=== PATIENT | male | born 1960 | race Caucasian/White ===

== ENCOUNTER → 2017-01-16 | Outpatient (CLI) | payer OTHER ==
--- NOTE | 2017-01-16 23:30 | MR ---
EXAMINATION TYPE: MR shoulder RT wo con DATE OF EXAM: 01/16/2017 COMPARISON: NONE HISTORY: Shoulder Pain, Limited ROM TECHNIQUE: Multiplanar, multisequence imaging of the right shoulder is performed without contrast. FINDINGS: There is extensive hypertrophic spurring at the AC joint. There is a large defect in the supraspinatu s tendon with increased signal at the greater tuberosity of the humerus. There is no retraction. Ther e is subacromial joint space narrowing. The glenoid ant appear intact. Subscapularis tendon is inta ct. Biceps tendon is intact. I see no fracture. IMPRESSION: Large rotator cuff tear at the greater tuberosity of the humerus without retraction. Small shoulder joint effusion. 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 Subacromial joint space narrowing and impingeme nt.
== END ==
LOC: RADMRIMAIN 19:21
PROVIDERS: ATTEND Orthopaedic Surgery
DX: M75.101 Unspecified rotator cuff tear or rupture of right shoulder, not specified as traumatic (principal); M19.011 Primary osteoarthritis, right shoulder

== ENCOUNTER → 2017-03-17 | Outpatient (CLI) | payer OTHER ==
[2017-03-17 10:01] LABS: EKG EKG PERFORMED
[2017-03-17 10:20] LABS: Anion Gap 10 mmol/L; Carbon Dioxide 24 mmol/L (22-30); Chloride 106 mmol/L (98-107); Potassium 4.4 mmol/L (3.5-5.1); Sodium 140 mmol/L (137-145)
[2017-03-17 10:32] LABS: Basophils % (A) 1 %; CH 32.8; CHCM 34.7; Eosinophils # (A) 0.1 k/uL (0-0.7); Eosinophils % (A) 2 %; HCT 51.8 % (39.0-53.0); HDW 2.45; HGB 16.4 gm/dL (13.0-17.5); Luc # (Auto) 0.13; Luc % (Auto) 2; Lymphocytes # (A) 1.5 k/uL (1.0-4.8); Lymphocytes % (A) 25 %; MCH 30.2 pg (25.0-35.0); MCHC 31.7 g/dL (31.0-37.0); MCV 95.2 fL (80.0-100.0); Mean Platelet Volume 7.8; Monocytes # (A) 0.5 k/uL (0-1.0); Monocytes % (A) 8 %; Neutrophils # (A) 3.7 k/uL (1.3-7.7); Neutrophils % (A) 63 %; RBC 5.44 m/uL (4.30-5.90); RDW 13.7 % (11.5-15.5); WBC 5.9 k/uL (3.8-10.6)
== END | disposition home or self-care (01) ==
LOC: LABPAT 09:42
PROVIDERS: ATTEND Orthopaedic Surgery
DX: Z01.810 Encounter for preprocedural cardiovascular examination (principal); Z01.812 Encounter for preprocedural laboratory examination; M75.41 Impingement syndrome of right shoulder
CPT/HCPCS: 36415; 80051; 85025; 93005

== ENCOUNTER → 2017-05-27 | Outpatient (CLI) | payer OTHER ==
[2017-05-27 16:48] LABS: Basophils % (A) 1 %; Eosinophils # (A) 0.2 k/uL (0-0.7); Eosinophils % (A) 3 %; HGB 18.5 gm/dL (13.0-17.5); Lymphocytes # (A) 1.5 k/uL (1.0-4.8); Lymphocytes % (A) 23 %; MCH 29.9 pg (25.0-35.0); MCHC 33.1 g/dL (31.0-37.0); MCV 90.2 fL (80.0-100.0); Monocytes # (A) 0.4 k/uL (0-1.0); Monocytes % (A) 7 %; Neutrophils # (A) 4.3 k/uL (1.3-7.7); Neutrophils % (A) 65 %; Platelet Count 197 k/uL (150-450); RDW 11.9 % (11.5-15.5); WBC 6.6 k/uL (3.8-10.6)
[2017-05-27 16:49] LABS: HCT 55.9 % (39.0-53.0)
[2017-05-27 16:52] LABS: ALT 42 U/L (21-72); AST 21 U/L (17-59); Albumin 4.4 g/dL (3.5-5.0); Alkaline Phosphatase 80 U/L (38-126); Anion Gap 9 mmol/L; Blood Urea Nitrogen 14 mg/dL (9-20); Calcium 9.7 mg/dL (8.4-10.2); Carbon Dioxide 30 mmol/L (22-30); Chloride 105 mmol/L (98-107); Cholesterol 248 mg/dL (<200); Glucose 98 mg/dL (74-99); HDL Cholesterol 44 mg/dL (40-60); LDL Cholesterol,Calculated 159 mg/dL (0-99); Potassium 4.8 mmol/L (3.5-5.1); Sodium 144 mmol/L (137-145); Total Bilirubin 0.6 mg/dL (0.2-1.3); Total Protein 7.3 g/dL (6.3-8.2); Triglycerides 225 mg/dL (<150)
[2017-05-28 01:23] LABS: Hepatitis A Antibody IgM Non-Reactive (Non-Reactive); Hepatitis B Core IgM Non-Reactive (Non-Reactive)
== END | disposition home or self-care (01) ==
LOC: LABWHC1 16:23
PROVIDERS: ATTEND Family Medicine
DX: Z00.00 Encounter for general adult medical examination without abnormal findings (principal); Z12.5 Encounter for screening for malignant neoplasm of prostate
CPT/HCPCS: 36415; 80053; 80061; 80074; 84153; 84443; 85025

== ENCOUNTER → 2018-05-13 | Outpatient (CLI) | payer OTHER ==
[2018-05-13 14:05] LABS: Basophils % (A) 1 %; Eosinophils # (A) 0.1 k/uL (0-0.7); Eosinophils % (A) 2 %; HCT 52.3 % (39.0-53.0); HGB 17.5 gm/dL (13.0-17.5); Lymphocytes # (A) 1.3 k/uL (1.0-4.8); Lymphocytes % (A) 19 %; MCH 30.2 pg (25.0-35.0); MCHC 33.5 g/dL (31.0-37.0); MCV 90.2 fL (80.0-100.0); Mean Platelet Volume 7.2; Monocytes # (A) 0.5 k/uL (0-1.0); Monocytes % (A) 7 %; Neutrophils # (A) 4.6 k/uL (1.3-7.7); Neutrophils % (A) 70 %; Platelet Count 172 k/uL (150-450); RDW 12.4 % (11.5-15.5); WBC 6.6 k/uL (3.8-10.6)
[2018-05-13 14:21] LABS: ALT 27 U/L (21-72); AST 23 U/L (17-59); Albumin 4.2 g/dL (3.5-5.0); Alkaline Phosphatase 69 U/L (38-126); Anion Gap 7 mmol/L; Blood Urea Nitrogen 17 mg/dL (9-20); Calcium 9.1 mg/dL (8.4-10.2); Carbon Dioxide 24 mmol/L (22-30); Chloride 110 mmol/L (98-107); Cholesterol 212 mg/dL (<200); Creatine Kinase 97 U/L (55-170); Glucose 97 mg/dL (74-99); HDL Cholesterol 42 mg/dL (40-60); LDL Cholesterol,Calculated 149 mg/dL (0-99); Potassium 4.7 mmol/L (3.5-5.1); Sodium 141 mmol/L (137-145); Total Bilirubin 0.6 mg/dL (0.2-1.3); Total Protein 7.2 g/dL (6.3-8.2); Triglycerides 104 mg/dL (<150)
[2018-05-13 21:31] LABS: Hemoglobin A1C 5.3 % (4.0-6.0)
--- NOTE | 2018-05-14 08:52 | US ---
EXAMINATION TYPE: US kidneys/renal and bladder DATE OF EXAM: 05/13/2018 COMPARISON: NONE CLINICAL HISTORY: R31.9 HEMATURIA. Back pain x couple weeks. EXAM MEASUREMENTS: Right Kidney: 9.3 x 4.6 x 4.8 cm Left Kidney: 10.7 x 5.5 x 5.3 cm Right Kidney: no hydronephrosis or masses seen Left Kidney: no hydronephrosis or masses seen Bladder: wnl Bilateral Jets seen: yes There is no evidence for hydronephrosis at this point in time. There appears to be a punctate 2 mm no nobstructing right renal calculus. Left kidney demonstrates a 4 mm shadowing nonobstructing calculus. No masses are identified. The urinary bladder is anechoic. Bilateral ureteral jets are seen. IMPRESSION: Bilateral sub-4 mm nonobstructing renal calculi. No hydronephrosis of either kidney.
== END ==
LOC: RADUSWWP 13:06
PROVIDERS: ATTEND Family Medicine
DX: N20.0 Calculus of kidney (principal); E78.5 Hyperlipidemia, unspecified; Z00.00 Encounter for general adult medical examination without abnormal findings; Z12.5 Encounter for screening for malignant neoplasm of prostate
CPT/HCPCS: 76770; 80053; 80061; 82550; 83036; 84153; 84439; 84443; 85025

== ENCOUNTER → 2018-06-01 | Outpatient (CLI) | payer OTHER ==
--- NOTE | 2018-06-02 08:06 | US ---
EXAMINATION TYPE: US thyroid st tissue head/neck DATE OF EXAM: 06/01/2018 COMPARISON: NONE CLINICAL HISTORY: R79.89 Raised TSH Level. Elevated TSH level GLAND SIZE: Right Lobe: 4.9 x 2.0 x 2.0 cm Overall Parenchyma: homogenous Left Lobe: 4.1 x 1.8 x 1.9 cm Overall Parenchyma: homogeneous Isthmus Thickness: 0.4 cm NODULES RIGHT: # of nodules measured on right: 0 LEFT: # of nodules measured on left: 0 ISTHMUS: # of nodules measured in the isthmus: 0 Bilateral neck scanned, no evidence of lymphadenopathy. IMPRESSION: Prominent size of the homogeneous thyroid gland. No discrete thyroid nodule.
== END | disposition home or self-care (01) ==
LOC: RADUSWWP 16:43
PROVIDERS: ATTEND Family Medicine
DX: R79.89 Other specified abnormal findings of blood chemistry (principal)
CPT/HCPCS: 76536

== ENCOUNTER → 2019-04-25 | Outpatient (CLI) | payer OTHER ==
[2019-04-25 17:32] LABS: Basophils % (A) 0 %; Eosinophils # (A) 0.2 k/uL (0-0.7); Eosinophils % (A) 3 %; HCT 49.7 % (39.0-53.0); HGB 17.1 gm/dL (13.0-17.5); Lymphocytes # (A) 1.6 k/uL (1.0-4.8); Lymphocytes % (A) 23 %; MCH 31.1 pg (25.0-35.0); MCHC 34.4 g/dL (31.0-37.0); MCV 90.3 fL (80.0-100.0); Monocytes # (A) 0.4 k/uL (0-1.0); Monocytes % (A) 6 %; Neutrophils # (A) 4.6 k/uL (1.3-7.7); Neutrophils % (A) 66 %; Platelet Count 196 k/uL (150-450); RDW 11.9 % (11.5-15.5)
[2019-04-26 01:26] LABS: African American GFR (CKD) 109.5 (60.0-200.0); Albumin 4.3 g/dL (3.80-4.90); Albumin/Globulin Ratio 2.15 (1.60-3.17); Anion Gap 6.2 mmol/L (4.00-12.00); BUN/Creat Ratio 14.44 Ratio (12.00-20.00); Calcium 8.9 mg/dL (8.7-10.3); Carbon Dioxide 26.8 mmol/L (21.6-31.8); Chol/HDL Ratio 4.67; LDL Cholesterol,Calculated 145.4 mg/dL (0.0-131.0); Non-African American GFR(CKD) 94.5 (60.0-200.0); Potassium 4.6 mmol/L (3.5-5.5); Total Bilirubin 0.6 mg/dL (0.3-1.2); Total Protein 6.3 g/dL (6.2-8.2); VLDL Calculation 30.6 mg/dL (5.00-40.00)
[2019-04-26 01:37] LABS: Hemoglobin A1C 5.4 % (4.0-6.0)
== END | disposition home or self-care (01) ==
LOC: LABWHC1 17:07
PROVIDERS: ATTEND Family Medicine
DX: Z00.00 Encounter for general adult medical examination without abnormal findings (principal); Z12.5 Encounter for screening for malignant neoplasm of prostate
CPT/HCPCS: 36415; 80053; 80061; 83036; 84153; 84443; 85025

== ENCOUNTER → 2019-06-24 | Outpatient (CLI) | payer OTHER ==
--- NOTE | 2019-06-24 20:21 | US ---
EXAMINATION TYPE: US venous doppler duplex LE LT DATE OF EXAM: 06/24/2019 7:39 PM COMPARISON: NONE CLINICAL HISTORY: M79.605 PAIN IN LT LEG. Intermittent edema left leg for 2 weeks to 1 month. Pain le ft knee SIDE PERFORMED: left TECHNIQUE: The lower extremity deep venous system is examined utilizing real time linear array sonog madelaine with graded compression, doppler sonography and color-flow sonography. VESSELS IMAGED: External Iliac Vein (EIV) Common Femoral Vein Deep Femoral Vein Greater Saphenous Vein * Femoral Vein Popliteal Vein Small Saphenous Vein * Proximal Calf Veins (* superficial vessels) Left Leg: No evidence of DVT. complex anechoic area left popliteal fossa = 4.5 x 2.5 x 2.7cm, Patricia' s cyst IMPRESSION: No evidence of deep venous thrombosis. Popliteal cyst is noted.
== END | disposition home or self-care (01) ==
LOC: RADUSMAIN 18:39
PROVIDERS: ATTEND Family Medicine
DX: M71.22 Synovial cyst of popliteal space [Baker], left knee (principal)

== ENCOUNTER → 2019-08-01 | Outpatient (CLI) | payer OTHER ==
--- NOTE | 2019-08-01 17:53 | MR ---
EXAMINATION TYPE: MR knee LT wo con DATE OF EXAM: 08/01/2019 COMPARISON: NONE HISTORY: left knee swelling per patient. Pain per order. TECHNIQUE: Multiplanar, multisequence images of the knee is performed without IV contrast. FINDINGS: MEDIAL MENISCUS: Anterior horn is intact without tear. Posterior horn is truncated with some abnormal signal, full-thickness tear suspected as patient denies prior surgery. LATERAL MENISCUS: Anterior and posterior horns are intact without tear. CRUCIATE LIGAMENTS: The anterior and posterior cruciate ligaments are intact . The anterior cruciate ligament is thickened with increased signal. COLLATERAL LIGAMENTS: The medial collateral ligament and lateral collateral ligament complex are inta ct and unremarkable. EXTENSOR MECHANISM: Visualized quadriceps and patellar tendons are intact. EFFUSION: Moderate size suprapatellar joint effusion. POPLITEAL CYST: Small to moderate size popliteal/skinner cyst measuring 5.5 cm long axis sagittal image 23. Some ill-defined fluid inferiorly suggests leak. TRICOMPARTMENT SPACES: Mild to moderate tricompartment joint space loss with mild spurring. CARTILAGE: Some chondromalacia patellar thinning of articular cartilage lining the superior aspect of the posterior patellar pole. Some moderate cartilaginous loss and fissuring medial tibial femoral co mpartment. BONE MARROW SIGNAL: Areas of diminished T1 and slight increased T2 signal medial tibial femoral deneen rtment greatest over the medial tibial plateau presumed product of reactive degenerative change. OTHER: No additional significant abnormality is appreciated. IMPRESSION: 1. Fairly moderate tricompartment degenerative changes greatest medial tibiofemoral compartment as de tailed above. Presumed product of underlying osteoarthritis. 2. Probable full-thickness degenerative tear posterior horn of medial meniscus. 3. Fairly moderate-sized suprapatellar joint effusion. 4. Small to moderate-sized leaking popliteal cyst. 5. Myxoid degeneration ACL.
== END | disposition home or self-care (01) ==
LOC: RADMRIMAIN 17:01
PROVIDERS: ATTEND Orthopaedic Surgery
DX: M17.12 Unilateral primary osteoarthritis, left knee (principal); M23.8X2 Other internal derangements of left knee; M66.0 Rupture of popliteal cyst

== ENCOUNTER → 2020-09-20 | Outpatient (CLI) | payer OTHER ==
[2020-09-20 16:23] LABS: Potassium 4.2 mmol/L (3.5-5.1)
[2020-09-20 16:30] LABS: Basophils % (A) 0 %; Eosinophils # (A) 0.2 k/uL (0-0.7); Eosinophils % (A) 3 %; HCT 47.6 % (39.0-53.0); HGB 16.2 gm/dL (13.0-17.5); Lymphocytes # (A) 1.7 k/uL (1.0-4.8); Lymphocytes % (A) 23 %; MCH 30.6 pg (25.0-35.0); MCV 90.1 fL (80.0-100.0); Mean Platelet Volume 7.5; Monocytes # (A) 0.4 k/uL (0-1.0); Monocytes % (A) 6 %; Neutrophils # (A) 4.8 k/uL (1.3-7.7); Neutrophils % (A) 66 %; Platelet Count 182 k/uL (150-450); RBC 5.29 m/uL (4.30-5.90); RDW 12.6 % (11.5-15.5); WBC 7.3 k/uL (3.8-10.6)
== END | disposition home or self-care (01) ==
LOC: LABPAT 15:48
PROVIDERS: ATTEND Orthopaedic Surgery
DX: Z01.818 Encounter for other preprocedural examination (principal); M23.92 Unspecified internal derangement of left knee; R94.31 Abnormal electrocardiogram [ECG] [EKG]
CPT/HCPCS: 36415; 80051; 85025; 93005

== ENCOUNTER 2020-09-26 12:04 | Day surgery (SDC) | payer OTHER ==
[2020-09-21 15:48] VITALS: BMI 31.5
--- NOTE | 2020-09-25 15:14 | HP ---
HISTORY AND PHYSICAL DATE OF SURGERY: 09/26/2020 Rivas Sorensen is a 59-year-old gentleman seen with progressive left knee pain. We discussed options for treatment. He elected to proceed with arthroscopy. Consent was obtained. PAST MEDICAL HISTORY: Gastroesophageal reflux disease. PAST SURGICAL HISTORY: Carpal tunnel surgery, knee arthroscopy, shoulder arthroscopy. DAILY MEDICATIONS: 1. Celebrex. 2. Prilosec. 3. Cyclobenzaprine. ALLERGIES: None. SOCIAL HISTORY: He smokes 1 pack of cigarettes daily. PHYSICAL EVALUATION OF THE LEFT KNEE: His range of motion is -1/2 to 130. Tenderness medial joint line. Positive medial Gopal's. Ligaments stable. Hip rotation without pain. Distal neurovascular exam intact. Radiographs of his left knee revealed moderate medial compartment osteoarthritis. A previous left knee MRI revealed medial meniscal tear, Patricia's cyst and moderate effusion. IMPRESSION: 1. Internal derangement of left knee with medial meniscal tear. 2. Gastroesophageal reflux disease. 3. Tobacco use. PLAN: Left knee arthroscopy with partial medial meniscectomy, partial synovectomy and debridement. MMODL / IJN: [id number] /
[~2020-09-26 12:04] MED LIST: DEXAMETHASONE SOD PHOSPHATE 4 MG/ML 1 ML VIAL IV ONE; HYDROmorphone 0.5 MG/0.5 ML SYRINGE IVP PRN; LACTATED RINGERS 1,000 ML IV SCH; LIDOCAINE 1% (10MG/ML) FOR IV START INTRADERMA PRN; ONDANSETRON 4 MG/2 ML VIAL IVP ONE; SCOPOLAMINE 1.5MG/72HR PATCH TRANSDERM ONE
[2020-09-26 12:38] VITALS: RESP 16
[2020-09-26] MEDS ORDERED: fentaNYL (PF) 50 MCG/ML 2 ML AMP ONE (12:46)
[2020-09-26] MEDS ORDERED: MIDAZOLAM 2 MG/2 ML VIAL ONE (12:46)
[2020-09-26] MEDS ORDERED: PROPOFOL 10 MG/ML 20 ML VIAL IV ONE (12:46)
[2020-09-26] MEDS ORDERED: HYDROmorphone (PF) 1 MG/ML ONE (12:46)
[2020-09-26] MEDS ORDERED: LIDOCAINE 1% INJ 10MG/ML (20 ML MDV) ONE (12:46)
[2020-09-26] MEDS ORDERED: BUPIVACAINE (PF) 0.25% 30 ML VIAL SQ ONE ×2 (13:06→13:15)
--- NOTE | 2020-09-26 13:29 | P.OP ---
Date of Procedure: 09/26/20 Preoperative Diagnosis: Internal derangement left knee Postoperative Diagnosis: 1. Tear medial meniscus left knee 2. Reactive synovitis medial, lateral and suprapatellar compartments left knee Procedure(s) Performed: 1. Arthroscopic partial medial meniscectomy left knee 2. Arthroscopic partial synovectomy medial, lateral and suprapatellar compartments left knee Anesthesia: DONTEA, local Surgeon: Jero Schmidt Estimated Blood Loss (ml): 7 Pathology: none sent Condition: stable Disposition: PACU Indications for Procedure: 59-year-old gentleman seen with progressive left knee pain. After having treatment options discussed, he elected to proceed with arthroscopy. Operative Findings: See description of procedure Description of Procedure: Patient was taken to the operative suite. Patient underwent a general anest hetic by the department of anesthesia. Patient was given preoperative antibiotics. The left lower extremity was placed in a well-padded arthroscopic leg wynn. The left leg was prepped and draped in the normal sterile orthopedic fashion. A lateral parapatellar and suprapatellar incision was made. Trochars were inserted. Arthroscopy was initiated. Suprapatellar pouch revealed diffuse thick reactive synovitis. The patellofemoral joint appeared to articulate congruently. There with grade 1 chondromalacia with no osteochondral tears present. The scope was guided into the medial gutter. No loose bodies or plica were identified. The scope was then guided into the medial compartment. A medial parapatellar incision was made. Trocar inserted followed by probe. There was a complex tear posterior horn medial meniscus. There were grade 2/3 chondromalacia changes of the medial femoral condyle. There was an area of grade 4 chondromalacia along the medial tibial plateau with exposed bone. There was thick reactive synovitis anteriorly. I performed a partial medial meniscectomy getting down to stable meniscal tissue. I performed a partial synovectomy decompressing the reactive synovitis. The residual meniscus was stable. There was good decompression of the synovitis. Scope and probe were then guided into the intercondylar notch. Cruciates were identified, probed and found to be stable. The scope and probe were then guided into lateral compartment. The lateral meniscus was stable. There was grade 1 chondral malacia changes with no tears. There was thick reactive synovitis anteriorly. I introduced a motorized shaver and performed a partial synovectomy. The shaver was removed. There was good decompression of the synovitis. The scope was in guided back into the suprapatellar compartment. I introduced a motorized shaver into the suprapatellar compartment. I debrided some piecemeal fragments of meniscus I encountered. I performed a partial synovectomy. Shaver was removed. There was good decompression of the synovitis. Instruments were now removed from the joint. The joint was infiltrated with .25% Marcaine. Steri-Strips were applied to the portal sites. Sterile dressings were applied. The patient was placed into a BISHOP hose. No tourniquet was utilized. The patient was awakened, transferred to a bed and taken to recovery stable satisfactory condition.
[2020-09-26 13:32] VITALS: TEMP 97.3
[2020-09-26] MEDS ORDERED: HYDROcodone/APAP 10-325MG 1 EACH TAB ONE (14:26)
[2020-09-26] MEDS ORDERED: HYDROcodone/APAP 10-325MG 1 EACH TAB PO ONE (14:28)
[2020-09-26 14:41] VITALS: BP 150/96; PULSE 77
== END 2020-09-26 15:07 | disposition home or self-care (01) ==
LOC: OR 12:04
PROVIDERS: ATTEND Orthopaedic Surgery
DX: M23.222 Derangement of posterior horn of medial meniscus due to old tear or injury, left knee (principal); M65.862 Other synovitis and tenosynovitis, left lower leg; K21.9 Gastro-esophageal reflux disease without esophagitis; F17.210 Nicotine dependence, cigarettes, uncomplicated; M19.90 Unspecified osteoarthritis, unspecified site; Z79.891 Long term (current) use of opiate analgesic; Z98.890 Other specified postprocedural states; Z79.899 Other long term (current) drug therapy
CPT/HCPCS: 29881; 29876; J2250; J1100; J0690; J2405; J2001; J3010; J1170; J2704

== ENCOUNTER → 2021-02-05 | Outpatient (CLI) | payer OTHER ==
--- NOTE | 2021-02-05 14:07 | ECHOS ---
STRESS ECHOCARDIOGRAM DATE OF STUDY: 02/05/2021 INDICATIONS: Chest pain. BASELINE HEART RATE: 71 BASELINE BLOOD PRESSURE: 120/87 MAXIMUM HEART RATE: 148 MAXIMUM BLOOD PRESSURE: 217/77 85% MPHR: 137 100% MPHR: 161 METS: 9.7 MAXIMUM STAGE REACHED: 3 TOTAL EXERCISE TIME: 8:00 CLINICAL INFORMATION: STRESS DATA: Pretesting physical examination showed a heart rate of 71, pressure 120/87 mmHg. Baseline EKG showed sinus mechanism. The patient exercised on the treadmill according to Zev protocol for a total of 8 minutes and achieved 9.7 METS. Max heart rate was 148, which is about 92% of maximum predicted heart rate. Maximum blood pressure was 217/77 mmHg. Clinically the patient did not have any symptoms. The EKG did not show any significant ST or T-wave abnormalities concerning for ischemia. Echocardiogram images from parasternal long axis view, parasternal short axis view, apical 4-chamber and apical 2-chamber views were obtained as the baseline images, at the peak of the heart rate as well as on recovery. The echocardiogram images showed good augmentation in the left ventricular systolic function without any evidence of wall motion abnormalities concerning for ischemia. CONCLUSION: 1. Excellent exercise tolerance. 2. Normal EKG in response to exercise. 3. Normal echocardiogram in response to exercise. 4. Essentially normal stress echocardiogram for the patient. MMODL / IJN: [id number] /
== END | disposition home or self-care (01) ==
LOC: RADNMMAIN 10:05
PROVIDERS: ATTEND Family Medicine
DX: R07.9 Chest pain, unspecified (principal)
CPT/HCPCS: 93351

== ENCOUNTER → 2021-02-05 | Outpatient (CLI) | payer OTHER ==
[2021-02-07 07:34] LABS: C-ANCA <1:20 Titer (<1:20)
== END | disposition home or self-care (01) ==
LOC: LABWHC1 09:14
PROVIDERS: ATTEND Otolaryngology Facial Plastic Surgery
DX: M35.00 Sjogren syndrome, unspecified (principal)
CPT/HCPCS: 36415; 85652; 86038; 86235; 86255

== ENCOUNTER → 2022-04-15 | Outpatient (CLI) | payer OTHER ==
--- NOTE | 2022-04-15 19:23 | US ---
EXAMINATION TYPE: US groin RT DATE OF EXAM: 04/15/2022 COMPARISON: NONE CLINICAL HISTORY: 61-year-old male K40.90 R Inguinal hernia. Technique: Multiple sonographic images of the right inguinal region without and with Valsalva. FINDINGS: Landmarks were identified including the external iliac vessels and takeoff of the inferior epigastric vessels. Multiple images were obtained in the region of the inguinal rings. Road Boss notes: No ul trasound evidence of hernia on today's ultrasound. IMPRESSION: Unable to identify a right inguinal hernia by ultrasound.
--- NOTE | 2022-04-15 19:28 | US ---
EXAMINATION TYPE: US scrotum with doppler. TECHNIQUE: Grayscale and color Doppler Duplex imaging performed of the scrotum. DATE OF EXAM: 04/15/2022 COMPARISON: NONE CLINICAL HISTORY: 61-year-old male N45.1 Epididymitis. FINDINGS: EXAM MEASUREMENTS: TESTICLES: Right Testicle: 4.8 x 2.3 x 3.1 cm for a volume of 18.0 mL. Left Testicle: 4.7 x 2.4 x 2.3 cm, slightly asymmetrically smaller with a volume of 13.5 mL. Both testicles show relatively homogeneous appearance without focal lesion or hyperemia. EPIDIDYMIS HEAD: Right Epididymis: 0.7 cm Left Epididymis: 1.0 cm Doppler performed to assess for testicular vascularity; good bilateral color flow and waveforms are s een. There is no evidence of testicular torsion. Presence of hydroceles: Small to moderate in size measuring 3.1 x 0.9 x 2.8cm Presence of varicoceles: no There seems to be some asymmetric left hemiscrotal skin thickening. Somewhat heterogeneous thickening to the body of the epididymis on both sides. IMPRESSION: 1. Somewhat heterogeneous thickening in the region of the body of the epididymis on both sides. Unabl e to entirely exclude the possibility of epididymitis. Consider short interval follow-up. 2. There is a small to moderate hydrocele on the right and slight left-sided hemiscrotal skin thicken ing. 3. Slight asymmetrically smaller left testicle probably a chronic finding in this patient. Otherwise, there is overall normal homogeneous appearance of both testicles.
[2022-04-15 23:57] LABS: Basophils # (A) 0.03 X 10*3/uL (0.00-0.10); Basophils % (A) 0.5 %; Eosinophils % (A) 1.8 %; HCT 49.1 % (39.6-50.0); HGB 16.9 g/dL (13.0-17.0); Immature Grans, Automated 0.4 %; Lymphocytes # (A) 1.25 X 10*3/uL (0.90-5.00); MCH 30.8 pg (27.0-32.0); MCHC 34.4 g/dL (32.0-37.0); MCV 89.6 fL (80.0-97.0); Mean Platelet Volume 10.1 fL (9.5-12.2); Monocytes # (A) 0.55 X 10*3/uL (0.20-1.00); Monocytes % (A) 9.7 %; NRBC Per 100 WBC 0 /100 WBCS (0.0-0.0); Neutrophils # (A) 3.74 X 10*3/uL (1.80-7.70); Neutrophils % (A) 65.6 %; Platelet Count 179 X 10*3/uL (140-440); RBC 5.48 X 10*6/uL (4.40-5.60); RDW 11.9 % (11.5-14.5); WBC 5.69 X 10*3/uL (4.50-10.00)
[2022-04-16 00:32] LABS: ALT 17 U/L (10-49); AST 15 U/L (14-35); African American GFR (CKD) 110.5 (60.0-200.0); Albumin 4.4 g/dL (3.8-4.9); Albumin/Globulin Ratio 2.05 (1.60-3.17); Alkaline Phosphatase 94 U/L (41-126); BUN/Creat Ratio 21.62 Ratio (12.00-20.00); Blood Urea Nitrogen 18.1 mg/dL (9.0-27.0); Calcium 8.9 mg/dL (8.7-10.3); Carbon Dioxide 25.9 mmol/L (20.0-27.5); Chloride 104 mmol/L (96-109); Chol/HDL Ratio 4.29 Ratio; Globulin 2.2 g/dL (1.6-3.3); Glucose 95 mg/dL (70-110); LDL Cholesterol,Calculated 137.2 mg/dL (0.0-131.0); Non-African American GFR(CKD) 95.3 (60.0-200.0); Sodium 139 mmol/L (135-145); Total Protein 6.6 g/dL (6.2-8.2); VLDL Calculation 13.86 mg/dL (5.00-40.00)
== END | disposition home or self-care (01) ==
LOC: RADUSWWP 14:04
PROVIDERS: ATTEND Family Medicine
DX: Z12.5 Encounter for screening for malignant neoplasm of prostate (principal); K40.90 Unilateral inguinal hernia, without obstruction or gangrene, not specified as recurrent; M45.1 Ankylosing spondylitis of occipito-atlanto-axial region
CPT/HCPCS: 76870; 80053; 80061; 83036; 84153; 84443; 85025; 93975

== ENCOUNTER → 2022-05-02 | Outpatient (CLI) | payer OTHER ==
--- NOTE | 2022-05-05 08:42 | MR ---
EXAMINATION TYPE: MR shoulder LT wo con DATE OF EXAM: 05/02/2022 COMPARISON: Outside left shoulder x-ray April 09, 2022 HISTORY: Left shoulder pain, decreased ROM. TECHNIQUE: Multiplanar, multisequence imaging of the left shoulder is performed without contrast. FINDINGS: Rotator Cuff: Increased signal distal supraspinatus tendon with areas of partial tearing near the art icular surface. Infraspinatus tendon intact. Rotator cuff muscle bulk preserved. Acromioclavicular Joint: Moderate narrowing and spurring. Moderate superior capsular hypertrophy. Und erlying fat plane is raised. Glenohumeral Joint: Small to moderate-sized joint effusion. Small spur inferior medial humeral head. Labrum: Increased signal superior labrum consistent with degenerative tearing. Biceps Tendon: The long head of biceps is not identify an end normal location within bicipital groove . Marked focal fluid signal along the bicipital groove. Intra-articular portion to the biceps anchor is not well seen suspected torn and dislocated. Bone marrow signal: Heterogeneous increased T2 signal involving the superolateral humeral head suspec t subchondral cystic change. Overall heterogeneity. Other: No additional significant abnormality is appreciated. IMPRESSION: 1. Tear and dislocation long head of biceps tendon. 2. Partial tearing and tendinopathy of the distal supraspinatus tendon. 3. Degenerative changes as detailed above. Superior labral tear is present.
== END | disposition home or self-care (01) ==
LOC: RADMRIMAIN 20:15
PROVIDERS: ATTEND Orthopaedic Surgery
DX: M75.112 Incomplete rotator cuff tear or rupture of left shoulder, not specified as traumatic (principal); S43.005A Unspecified dislocation of left shoulder joint, initial encounter; M19.012 Primary osteoarthritis, left shoulder

== ENCOUNTER → 2022-11-17 | Outpatient (CLI) | payer OTHER ==
--- NOTE | 2022-11-18 20:39 | MR ---
EXAMINATION TYPE: MR shoulder LT wo con DATE OF EXAM: 11/17/2022 COMPARISON: Prior MRI left shoulder May 02, 2022. Most recent x-ray October 30, 2022. HISTORY: Lt shoulder pain with difficulty raising arm overhead for 2 weeks, history of surgery 4 ashley hs ago. TECHNIQUE: Multiplanar, multisequence imaging of the left shoulder is performed without contrast. FINDINGS: Rotator Cuff: Increased signal distal supraspinatus tendon with more prominent areas of tearing near the articular surface and increasing tearing along the bursal surface noted. Infraspinatus tendon rem ains intact with some increased signal involving anterior fibers distally. Portion of Subscapularis t endon remains intact. Some increased signal and surrounding fluid noted. Some atrophy involving the p osterior fibers of the subscapularis muscle otherwise Rotator cuff muscle bulk preserved. Acromioclavicular Joint: Moderate narrowing and spurring. Moderate superior capsular hypertrophy. Und erlying fat plane is effaced on coronal and sagittal images suspicious for underlying impingement. Glenohumeral Joint: Small to moderate-sized joint effusion redemonstrated. Small spur inferior medial humeral head again seen. Narrowing greatest inferiorly redemonstrated. Labrum: Increased signal superior labrum consistent with degenerative tearing is again seen. Biceps Tendon: The long head of biceps is not identify an end normal location within bicipital groove . Marked focal fluid signal along the bicipital groove. Intra-articular portion to the biceps anchor is not well seen suspected torn and dislocated. Bone marrow signal: New artifact from surgical screw anterolateral aspect of the humeral head is pres ent. Other: No additional significant abnormality is appreciated. IMPRESSION: 1. Persistent suspected Tear and dislocation long head of biceps tendon despite artifact from interva l surgery. Normal intact tendon is not identified. 2. Increasing tearing and tendinosis of the distal supraspinatus tendon. There is new less prominent tendinosis of the distal infraspinatus tendon. 3. Fairly moderate Degenerative changes as detailed above. Correlate for underlying impingement. Supe rior labral tear is redemonstrated.
== END | disposition home or self-care (01) ==
LOC: RADMRIMAIN 18:49
PROVIDERS: ATTEND Orthopaedic Surgery
DX: M67.814 Other specified disorders of tendon, left shoulder (principal); M75.112 Incomplete rotator cuff tear or rupture of left shoulder, not specified as traumatic; M19.012 Primary osteoarthritis, left shoulder

== ENCOUNTER → 2022-12-01 | Outpatient (CLI) | payer OTHER ==
[2022-12-01 16:46] LABS: Basophils # (A) 0.03 X 10*3/uL (0.00-0.10); Basophils % (A) 0.5 %; Eosinophils # (A) 0.14 X 10*3/uL (0.04-0.35); Eosinophils % (A) 2.4 %; HCT 50.2 % (39.6-50.0); HGB 17.2 d/dL (12.0-15.0); Lymphocytes # (A) 1.55 X 10*3/uL (0.90-5.00); Lymphocytes % (A) 26.8 %; MCH 30.9 pg (27.0-32.0); MCHC 34.3 d/dL (32.0-37.0); MCV 90.1 FL (80.0-97.0); Monocytes # (A) 0.62 X 10*3/uL (0.20-1.00); Monocytes % (A) 10.7 %; NRBC Per 100 WBC 0 X 10*3/uL (0.00-0.01); Neutrophils # (A) 3.43 X 10*3/uL (1.80-7.70); Neutrophils % (A) 59.3 %; Platelet Count 160 X 10*3/uL (140-440); RBC 5.57 X 10*6/uL (4.40-5.60); WBC 5.79 X 10*3/uL (4.50-10.00)
[2022-12-01 17:26] LABS: Anion Gap 10.3 mmol/L (4.00-12.00); Carbon Dioxide 25.7 mmol/L (21.6-31.8); Potassium 4.6 mmol/L (3.5-5.5)
== END | disposition home or self-care (01) ==
LOC: LABWHC1 09:50
PROVIDERS: ATTEND Orthopaedic Surgery
DX: Z01.812 Encounter for preprocedural laboratory examination (principal); M75.42 Impingement syndrome of left shoulder
CPT/HCPCS: 36415; 80051; 85025

== ENCOUNTER 2022-12-25 07:19 | Day surgery (SDC) | payer OTHER ==
[2022-12-19 10:43] VITALS: BMI 32.5
--- NOTE | 2022-12-24 14:37 | HP ---
HISTORY AND PHYSICAL DATE OF SCHEDULED SURGERY: 12/25/2022 HISTORY OF PRESENT ILLNESS: Willie Sorensen is a 62-year-old patient seen with left shoulder pain. We discussed options, had post left shoulder arthroscopy. Consent obtained. PAST MEDICAL HISTORY: Gastroesophageal reflux disease. PAST SURGICAL HISTORY: Carpal tunnel surgery, knee arthroscopy, shoulder arthroscopy. DAILY MEDICATIONS: 1. Celebrex. 2. Neavitt. 3. Prilosec. 4. Trazodone. 5. Furosemide. ALLERGIES: None. SOCIAL HISTORY: He smokes 1 pack of cigarettes daily. PHYSICAL EVALUATION OF THE LEFT SHOULDER: Range of the left shoulder, flexion 70 degrees, abduction 70 degrees, external rotation is 30 degrees. Tenderness along the anterolateral acromion rotator cuff insertion. Impingement positive 80, drop-arm sign positive. Distal neurovascular exam intact. RADIOGRAPHS: Left shoulder radiographs revealed a stable flat acromion. MRI left shoulder revealed rotator cuff tear, labral tear, and acromioclavicular joint osteoarthritis. IMPRESSION: 1. Left shoulder rotator cuff tear and labral tear. 2. Left shoulder acromioclavicular joint osteoarthritis. 3. Gastroesophageal reflux disease. PLAN: Left shoulder arthroscopy with rotator cuff repair, debridement, labral tear, Froy procedure. MMODL / IJN: [id number] /
[2022-12-25] MEDS ORDERED: ONDANSETRON 4 MG/2 ML VIAL IVP ONE (07:46)
[2022-12-25] MEDS ORDERED: DEXAMETHASONE SOD PHOSPHATE 4 MG/ML 1 ML VIAL IV ONE (07:46)
[2022-12-25] MEDS ORDERED: HYDROmorphone 0.5 MG/0.5 ML SYRINGE IVP PRN (07:46)
[2022-12-25] MEDS ORDERED: LACTATED RINGERS 1,000 ML IV SCH (07:46)
[2022-12-25] MEDS ORDERED: MIDAZOLAM 2 MG/2 ML VIAL IVP ONE (08:33)
[2022-12-25] MEDS ORDERED: ROCURONIUM 10 MG/ML (5 ML VIAL) IV ONE (09:28)
[2022-12-25] MEDS ORDERED: ROPIVACAINE 5 MG/ML 30 ML VIAL ONE (09:28)
[2022-12-25] MEDS ORDERED: PROPOFOL 10 MG/ML 20 ML VIAL IV ONE (09:28)
[2022-12-25] MEDS ORDERED: fentaNYL (PF) 50 MCG/ML 2 ML AMP ONE (09:28)
[2022-12-25] MEDS ORDERED: ALBUTEROL HFA INHALER INHALATION ONE (09:28)
[2022-12-25] MEDS ORDERED: LIDOCAINE 2% INJ 20 MG/ML (2 ML VIAL) ONE (09:28)
[2022-12-25] MEDS ORDERED: SUCCINYLCHOLINE CHLORIDE 200 MG/10 ML VIAL IV ONE (09:28)
[2022-12-25] MEDS ORDERED: DEXAMETHASONE SOD PHOSPHATE 4 MG/ML 1 ML VIAL ONE (09:28)
[2022-12-25] MEDS ORDERED: PHENYLEPHRINE 10 MG/ML VIAL ONE (09:28)
--- NOTE | 2022-12-25 10:47 | P.OP ---
Date of Procedure: 12/25/22 Preoperative Diagnosis: Left shoulder impingement Postoperative Diagnosis: 1. Left shoulder rotator cuff tear 2. Left shoulder acromioclavicular joint osteoarthritis Procedure(s) Performed: 1. Left shoulder arthroscopic rotator cuff repair 2. Left shoulder arthroscopic Froy procedure Implants: 1Arthrex 5.5 swivel lock anchor Anesthesia: GETA, regional (Interscalene block) Surgeon: Jero Schmidt Estimated Blood Loss (ml): 10 Pathology: none sent Condition: stable Disposition: PACU Indications for Procedure: 62-year-old patient seen with left shoulder pain. We discussed options for treatment. He elected to proceed with arthroscopy. Operative Findings: See description of procedure Description of Procedure: Patient underwent an interscalene block by department of anesthesia. The p atient was then taken to the operative suite. The patient underwent a general anesthetic by the department of anesthesia. The patient was placed into a lateral position and secured. There was appropriate padding of the bony prominence. Left shoulder was then prepped and draped in normal sterile orthopedic fashion. We placed the extremity in 10 pounds of longitudinal traction. A posterior incision was now made for a posterior working portal site. The trocar and cannula were inserted into the glenohumeral joint. Arthroscopy was initiated. Spinal needle was now inserted anteriorly, to ascertain the anterior working portal site. An incision was now made in that area, a trocar was inserted followed by a probe. The biceps tendon was absent. The labrum appeared stable. There were grade 1 chondromalacia changes involving the glenohumeral joint without significant tear. At this point instruments removed from glenohumeral joint. Utilizing the posterior working portal site, the trocar and cannula were inserted into the subacromial space. Arthroscopy initiated. I made an incision 2 fingerbreadths lateral to the acromion. I introduced my trocar followed by my ArthroCare ablator. I now began ablating thick subacromial bursal tissue, which exposed the undersurface of the anterior acromion. There was evidence of a previous subacromial decompression adequate subacromial space noted. The acromioclavicular joint revealed some significant osteoarthritic changes. I now introduced a motorized bur through the anterior portal site and performed a Froy procedure. I noted adequate Froy procedure at this point was stable residual acromioclavicular joint. I now turned my attention to the rotator cuff tendon. There was a recurrent tear along the distal supraspinatus tendon with evidence of previous repair. I now debrided those margins all residual suture getting down to stable tendon tissue. The recurrent tear measuring about 1.5 cm and was freely mobile over the footprint. I abraded the footprint with a motorized bur. I now passed 3 everted mattress sutures through good bites of rotator cuff tendon. I now punched to holes in the footprint area for insertion of an anchor. All 6 limbs of suture were passed through the eyelet of an Arthrex 5.5 swivel lock anchor. I placed the eyelet in that the pre-punch hole. I held in position while an medical record assistant tensioned all 6 limbs of suture and deployed the anchor with good fixation noted. All residual suture limbs were now clipped. We had good compression of the tendon along the entire footprint. Instruments now removed from the portal sites. All portal sites were approximated with nylon suture. Sterile dressings were applied followed by a shoulder sling. The patient was awakened, transferred to a bed, and taken to recovery in stable condition.
[2022-12-25 10:52] VITALS: TEMP 97
[2022-12-25 11:02] VITALS: RESP 16
[2022-12-25] MEDS ORDERED: LABETALOL SYRINGE 5 MG/ML (4 ML SYR) IVP ONE (11:17)
--- NOTE | 2022-12-25 11:46 | P.ANPRN ---
Procedure Note - Anesthesia - Nerve Block Performed Left Interscalene Single Time Out Performed: Yes Date of Procedure: 12/25/22 Location of Patient: PreOp Indication: Acute Post-Operative Pain, Dx/Pain Location (Left shoulder), Requested by Surgeon Specifically requested for management of pain by DrCarol: Jero Schmidt Sedation Type: Sedate with meaningful contact maintained Preparation: Sterile Prep Position: Supine Catheter: None Needle Types: Pajunk Ultrasound used to visualize needle placement: Yes Ultrasound used to observe medication spread: Yes Injectate: 0.5% Ropivacaine (see comment for volume) (30 mL +10 mL of normal saline) Blood Aspirated: No Pain Paresthesia on Injection Noted: No Resistance on Injection: Normal Image Stored and Saved: Yes Events: Uneventful and Well Tolerated
[2022-12-25 11:51] VITALS: BP 130/85; PULSE 71
== END 2022-12-25 12:11 | disposition home or self-care (01) ==
LOC: OR 07:19
PROVIDERS: ATTEND Orthopaedic Surgery
DX: S43.402A Unspecified sprain of left shoulder joint, initial encounter (principal); M75.42 Impingement syndrome of left shoulder; M75.102 Unspecified rotator cuff tear or rupture of left shoulder, not specified as traumatic; M94.212 Chondromalacia, left shoulder; K21.9 Gastro-esophageal reflux disease without esophagitis; F17.210 Nicotine dependence, cigarettes, uncomplicated; Z98.890 Other specified postprocedural states; Z79.899 Other long term (current) drug therapy; X58.XXXA Exposure to other specified factors, initial encounter
CPT/HCPCS: 64415; 29827; 29824; C1894; C1713; J2250; J0330; J1100; J0690; J2405; J3010; J2795; J2704; J2001; J2371; J1920

== ENCOUNTER 2023-04-28 08:52 | Emergency (ER) | payer OTHER ==
[2023-04-28] MEDS ORDERED: HYDROmorphone 1 MG/ML 1 ML SYRINGE IVP STA ×2 (09:06→10:36)
[2023-04-28 09:41] LABS: Basophils % (A) 0 %; Eosinophils # (A) 0.1 k/uL (0-0.7); Eosinophils % (A) 2 %; HCT 50.1 % (39.0-53.0); HGB 17.7 gm/dL (13.0-17.5); Lymphocytes # (A) 1.1 k/uL (1.0-4.8); Lymphocytes % (A) 15 %; MCH 31.4 pg (25.0-35.0); MCHC 35.3 g/dL (31.0-37.0); MCV 88.9 fL (80.0-100.0); Mean Platelet Volume 7.9; Monocytes # (A) 0.5 k/uL (0-1.0); Monocytes % (A) 8 %; Neutrophils # (A) 5.3 k/uL (1.3-7.7); Neutrophils % (A) 73 %; Platelet Count 156 k/uL (150-450); RBC 5.64 m/uL (4.30-5.90); RDW 12.5 % (11.5-15.5); WBC 7.2 k/uL (3.8-10.6)
[2023-04-28 09:55] LABS: ALT 22 U/L (4-49); African American GFR (CKD) >90 (>60 ml/min/1.73 sqM); Albumin 4.2 g/dL (3.5-5.0); Anion Gap 8 mmol/L; Blood Urea Nitrogen 15 mg/dL (9-20); Calcium 8.7 mg/dL (8.4-10.2); Carbon Dioxide 23 mmol/L (22-30); Chloride 101 mmol/L (98-107); Glucose 104 mg/dL (74-99); Non-African American GFR(CKD) >90 (>60 ml/min/1.73 sqM); Sodium 132 mmol/L (137-145); Total Bilirubin 0.9 mg/dL (0.2-1.3); Total Protein 7.2 g/dL (6.3-8.2)
[2023-04-28 10:01] LABS: AST 28 U/L (17-59); Alkaline Phosphatase 90 U/L (38-126); Potassium 4.6 mmol/L (3.5-5.1)
--- NOTE | 2023-04-28 10:23 | ED ---
Fall HPI - General Chief Complaint: Fall Stated Complaint: Fall, lower back pain Time Seen by Provider: 04/28/23 09:00 Source: patient, family, RN notes reviewed Mode of arrival: ambulatory Limitations: no limitations - History of Present Illness Initial Comments: 62-year-old male presents emergency Department chief complaint of fall, left flank pain, abdominal pain. Patient states she slipped on some ice falling on the deck steps. Patient states he had no head injury no loss conscious denies any upper back pain, chest pain he states his pain from his left flank region into his abdomen states his abdomen feels very firm. Patient denies any lower extremity symptoms he did take her Bendena prior arrival which did not improve his symptoms. - Related Data Home Medications Medication Instructions Recorded Confirmed Celecoxib [CeleBREX] 200 mg PO BID 11/08/15 12/19/22 HYDROcodone/APAP 10-325MG [Bendena 1 tab PO TID 11/08/15 12/25/22 10-325] Omeprazole 40 mg PO HS 11/08/15 12/25/22 Albuterol Sulfate [Proair 1 puff PO DIRECTED PRN 11/01/19 12/25/22 [place]] Tamsulosin [Flomax] 0.4 mg PO HS 11/01/19 12/25/22 rOPINIRole HCL [Requip] 0.5 mg PO HS 11/01/19 12/25/22 traZODone HCL 50 mg PO HS 11/01/19 12/25/22 Pregabalin 75 mg PO BID 09/21/20 12/25/22 modafiniL [Provigil] 200 mg PO DAILY PRN 07/10/22 12/25/22 Azelastine HCl [Astelin Nasal 2 spray NASAL BID 12/19/22 12/25/22 [place]] Fluticasone Propionate 1 spray NASAL DAILY 12/19/22 12/25/22 Previous Rx's Medication Instructions Recorded HYDROcodone/APAP 7.5-325MG [Bendena 1 each PO Q6HR PRN #28 tab 12/25/22 7.5-325] Allergies Allergy/AdvReac Type Severity Reaction Status Date / Time No Known Allergies Allergy Verified 04/28/23 08:55 Review of Systems ROS Statement: Those systems with pertinent positive or pertinent negative responses have been documented in the HPI. ROS Other: All systems not noted in ROS Statement are negative. Past Medical History Past Medical History: Cancer, GERD/Reflux, Hearing Disorder / Deafness, Hyperlip idemia, Musculoskeletal Disorder, Osteoarthritis (OA) Additional Past Medical History / Comment(s): Chronic back pain, fx L1. INSOMNIA. RLS. Melanoma skin cancer cheek. Hx kidney stones. Lt knee pain. Varicose veins. BLE edema. History of Any Multi-Drug Resistant Organisms: None Reported Past Surgical History: Orthopedic Surgery Additional Past Surgical History / Comment(s): CARRIE CARPAL TUNNEL, bilateral ROTATOR CUFF x2. POLYPS REMOVED FROM VOCAL CORDS: NEG. Fatty cyst exc. COLONOSCOPY, Past Anesthesia/Blood Transfusion Reactions: No Reported Reaction Past Psychological History: No Psychological Hx Reported Smoking Status: Current every day smoker Past Alcohol Use History: Occasional Past Drug Use History: None Reported - Past Family History Father History Unknown: Yes Family Medical History: Cancer Additional Family Medical History / Comment(s): Possible Prostate Cancer. Mother Family Medical History: Cancer General Exam Limitations: no limitations General appearance: alert, in no apparent distress Head exam: Present: atraumatic, normocephalic, normal inspection Eye exam: Present: normal appearance, PERRL, EOMI. Absent: scleral icterus, conjunctival injection, periorbital swelling ENT exam: Present: normal exam, normal oropharynx, mucous membranes moist Neck exam: Present: normal inspection, full ROM. Absent: tenderness, meningismus, lymphadenopathy Respiratory exam: Present: normal lung sounds bilaterally, chest wall tenderness. Absent: respiratory distress, wheezes, rales, rhonchi, stridor Cardiovascular Exam: Present: regular rate, normal rhythm, normal heart sounds. Absent: systolic murmur, diastolic murmur, rubs, gallop, clicks GI/Abdominal exam: Present: soft, tenderness, normal bowel sounds. Absent: distended, guarding, rebound, rigid Back exam: Present: full ROM, tenderness, CVA tenderness (L). Absent: CVA tenderness (R) Course Vital Signs 04/28/23 04/28/23 04/28/23 08:56 10:08 11:25 Temperature 97.6 F 98.0 F 98.4 F Pulse Rate 76 73 81 Respiratory 20 17 18 Rate Blood Pressure 149/100 143/87 147/94 O2 Sat by Pulse 96 93 L 93 L Oximetry Medical Decision Making - Medical Decision Making Was pt. sent in by a medical professional or institution (RAMA Kendall, RN PAR[employer], urgent care, hospital, or custodial...) When possible be specific @ -No Did you speak to anyone other than the patient for history (EMS, parent, family, police, friend...)? What history was obtained from this source @ -No Did you review nursing and triage notes (agree or disagree)? Why? @ -I reviewed and agree with nursing and triage notes Were old charts reviewed (outside hosp., previous admission, EMS record, old EKG, old radiological studies, urgent care reports/EKG's, custodial records)? Report findings @ -No old charts were reviewed Differential Diagnosis (chest pain, altered mental status, abdominal pain women, abdominal pain men, vaginal bleeding, weakness, fever, dyspnea, syncope, headache, dizziness, GI bleed, back pain, seizure, CVA, palpatations, mental health, musculoskeletal)? @ -[Rib fracture, pneumothorax, intra-abdominal hemorrhage, splenic laceration, renal laceration EKG interpreted by me (3pts min.). @ -None X-rays interpreted by me (1pt min.). @ -None done CT interpreted by me (1pt min.). @ -CT of pelvis with contrast shows no intra-abdominal process is no acute fracture U/S interpreted by me (1pt. min.). @ -None done What testing was considered but not performed or refused? (CT, X-rays, U/S, labs)? Why? @ -None What meds were considered but not given or refused? Why? @ -None Did you discuss the management of the patient with other professionals (professionals i.e. RAMA Kendall, RN [employer], lab, RT, psych nurse, social services analyst, biomedical instrument technician, teacher, motorcycle police officer, caser shoe [employer])? Give summary @ -No Was smoking cessation discussed for >3mins.? @ -No Was critical care preformed (if so, how long)? @ -No Were there social determinants of health that impacted care today? How? (Homelessness, low income, unemployed, alcoholism, drug addiction, transportation, low edu. Level, literacy, decrease access to med. care, residential, rehab)? @ -No Was there de-escalation of care discussed even if they declined (Discuss DNR or withdrawal of care, Hospice)? DNR status @ -No What co-morbidities impacted this encounter? (DM, HTN, Smoking, COPD, CAD, Cancer, CVA, ARF, Chemo, Hep., AIDS, mental health diagnosis, sleep apnea, morbid obesity)? @ -None Was patient admitted / discharged? Hospital course, mention meds given and route, prescriptions, significant lab abnormalities, going to OR and other pertinent info. @ -Discharged patient's imaging was negative patient has rib contusion, back contusion will be discharged in stable condition patient states he currently takes Bendena and feels comfortable continuation of this pain meds. Undiagnosed new problem with uncertain prognosis? @ -No Drug Therapy requiring intensive monitoring for toxicity (Heparin, Nitro, Insulin, Cardizem)? @ -No Were any procedures done? @ -No Diagnosis/symptom? @ -Fall, rib contusion, back contusion Acute, or Chronic, or Acute on Chronic? @ -Acute Uncomplicated (without systemic symptoms) or Complicated (systemic symptoms)? @ -Uncomplicated Side effects of treatment? @ -No Exacerbation, Progression, or Severe Exacerbation? @ -No Poses a threat to life or bodily function? How? (Chest pain, [place], [place], pneumonia, PE, COPD, DKA, ARF, appy, cholecystitis, CVA, Diverticulitis, Homicidal, Suicidal, threat to staff... and all critical care pts) @ -No - Lab Data Result diagrams: 04/28/23 09:24 04/28/23 09:24 Lab Results 04/28/23 04/28/23 Range/Units 09:24 09:24 WBC 7.2 (3.8-10.6) k/uL RBC 5.64 (4.30-5.90) m/uL Hgb 17.7 H (13.0-17.5) gm/dL Hct 50.1 (39.0-53.0) % MCV 88.9 (80.0-100.0) fL MCH 31.4 (25.0-35.0) pg MCHC 35.3 (31.0-37.0) g/dL RDW 12.5 (11.5-15.5) % Plt Count 156 (150-450) k/uL MPV 7.9 Neutrophils % 73 % Lymphocytes % 15 % Monocytes % 8 % Eosinophils % 2 % Basophils % 0 % Neutrophils # 5.3 (1.3-7.7) k/uL Lymphocytes # 1.1 (1.0-4.8) k/uL Monocytes # 0.5 (0-1.0) k/uL Eosinophils # 0.1 (0-0.7) k/uL Basophils # 0.0 (0-0.2) k/uL Sodium 132 L (137-145) mmol/L Potassium 4.6 (3.5-5.1) mmol/L Chloride 101 (98-107) mmol/L Carbon Dioxide 23 (22-30) mmol/L Anion Gap 8 mmol/L BUN 15 (9-20) mg/dL Creatinine 0.72 (0.66-1.25) mg/dL Est GFR (CKD-EPI)AfAm >90 (>60 ml/min/1.73 sqM) Est GFR (CKD-EPI)NonAf >90 (>60 ml/min/1.73 sqM) Glucose 104 H (74-99) mg/dL Calcium 8.7 (8.4-10.2) mg/dL Total Bilirubin 0.9 (0.2-1.3) mg/dL AST 28 (17-59) U/L ALT 22 (4-49) U/L Alkaline Phosphatase 90 (38-126) U/L Total Protein 7.2 (6.3-8.2) g/dL Albumin 4.2 (3.5-5.0) g/dL Disposition Clinical Impression: Fall, Contusion of rib on left side Disposition: HOME SELF-CARE Condition: Stable Instructions (If sedation given, give patient instructions): Rib Contusion (ED) Additional Instructions: Please return to the Emergency Department if symptoms worsen or any other con cerns. Is patient prescribed a controlled substance at d/c from ED?: No Referrals: Johnnie Hernandez MD [Primary Care Provider] - 1-2 days Time of Disposition: 11:26
--- NOTE | 2023-04-28 11:14 | CT ---
EXAMINATION TYPE: CT abdomen pelvis w con DATE OF EXAM: 04/28/2023 COMPARISON: None HISTORY: Flank/abdomen pain following fall CT DLP: 1145.8 mGycm CONTRAST: CT scan of the abdomen and pelvis is performed without Oral Contrast and with IV Contrast, patient in jected with 100 mL of Isovue 300. FINDINGS: LUNG BASES-: No visible nodule. No infiltrate. Basilar linear atelectasis. Small hiatal hernia. LIVER/GB: No calcified gallstones. No space occupying hepatic lesion. Biliary tree is of normal ca liber. PANCREAS: No inflammation. No distinct mass. SPLEEN: No splenic enlargement. No lesion seen. ADRENALS: No nodule. No thickening. KIDNEYS/BLADDER: No hydronephrosis. No nephrolithiasis. No distinct renal mass. Urinary bladder g rossly unremarkable. BOWEL: Normal appendix. Normal bowel caliber. No inflammation. GENITAL ORGANS: No gross abnormality. LYMPH NODES: No greater than 1cm abdominal or pelvic lymph nodes are appreciated. AORTA: No significant abnormality. OSSEOUS STRUCTURES: Multilevel degenerative disc space narrowing and spondylosis. OTHER: No significant additional abnormality is seen. IMPRESSION: 1. No evidence for traumatic injury to the hollow or solid abdominal viscera.
[2023-04-28 11:28] VITALS: BP 147/94; PULSE 81; RESP 18; TEMP 98.4
== END 2023-04-28 11:30 | disposition home or self-care (01) ==
LOC: EC 08:52
DX: S20.212A Contusion of left front wall of thorax, initial encounter (principal); K21.9 Gastro-esophageal reflux disease without esophagitis; F17.200 Nicotine dependence, unspecified, uncomplicated; Z79.899 Other long term (current) drug therapy; W00.0XXA Fall on same level due to ice and snow, initial encounter
CPT/HCPCS: 36415; 80053; 85025; 74177; 99284; 96374; 96376; J1170; Q9967

== ENCOUNTER → 2023-11-20 | Outpatient (CLI) | payer OTHER ==
--- NOTE | 2023-11-20 10:11 | XR ---
EXAMINATION TYPE: XR pelvis AP view DATE OF EXAM: 11/20/2023 9:58 AM CLINICAL INDICATION:Male, 62 years old with history of M48.062 SPINAL STENOSIS, LUMBAR REGION WITH NE UROG; PHH COMPARISON: None TECHNIQUE: XR pelvis AP view, examined in a single projection. FINDINGS: There is no evidence of fracture or dislocation. There is no soft tissue abnormality. No a bnormal calcifications are present. The spine appears intact. The hips appear intact. Osteophyte form ation of the superior acetabulum bilaterally with mild joint space narrowing. IMPRESSION: No acute osseous pathology. Moderate degeneration changes of the hip.
--- NOTE | 2023-11-20 11:57 | XR ---
EXAMINATION TYPE: XR lumbosacral spine 5 V DATE OF EXAM: 11/20/2023 Comparison: None Clinical History: 62-year-old male M48.062 SPINAL STENOSIS, LUMBAR REGION WITH NEUROG Findings: 5 lumbar type vertebral bodies. Hypertrophic facet arthropathy lower lumbar spine. Some anterior brid ging endplate spondylosis noted in the lower thoracic spine down to the L2 level and also at L3-L4. P artially bridging at L4-L5. Accentuated lower lumbar lordosis. Vertebral body heights are preserved a nd alignment is maintained. Impression: 1. Hypertrophic facet arthropathy lower lumbar spine with accentuated lower lumbar lordosis. 2. Bridging anterior endplate spondylosis lower thoracic spine down to the L2 level. Also at L3-L4. P artially bridging at L4-L5. 3. No vertebral compression collapse or malalignment.
== END | disposition home or self-care (01) ==
LOC: RADXRMAIN 09:15
PROVIDERS: ATTEND Physical Medicine & Rehabilitation
DX: M47.815 Spondylosis without myelopathy or radiculopathy, thoracolumbar region (principal); M48.062 Spinal stenosis, lumbar region with neurogenic claudication
CPT/HCPCS: 72110; 72170

== ENCOUNTER → 2024-01-29 | Outpatient (CLI) | payer OTHER ==
--- NOTE | 2024-01-30 08:28 | MR ---
EXAMINATION TYPE: MR lumbar spine wo con DATE OF EXAM: 01/29/2024 8:24 PM CLINICAL INDICATION: Male, 63 years old with history of M43.07, low back pain that radiates down left leg COMPARISON: None TECHNIQUE: Multi planar, multi sequence imaging was performed utilizing: T1-weighted, T2-weighted, a nd turbo inversion recovery imaging of the lumbar spine. IV Contrast: (None if empty) FINDINGS: Alignment: The lumbar vertebral bodies have preserved heights and alignment. Cord: The conus medullaris and the distal spinal cord appear unremarkable with regards to their signa l intensity and morphology. Bones/Discs: Mild degeneration changes throughout the spine with osteophyte formation and facet joint arthropathy. Intervertebral disc signal is maintained. No abnormal inversion recovery signal to sugg est bony edema. T12-L1: No evidence of significant spinal canal stenosis or neural foraminal stenosis. L1-L2: No evidence of significant spinal canal stenosis or neural foraminal stenosis. L2-L3: No evidence of significant spinal canal stenosis or neural foraminal stenosis. L3-L4: No evidence of significant spinal canal stenosis or neural foraminal stenosis. L4-L5: Disc bulge and facet joint arthropathy result in mild spinal canal and mild to moderate bilate ral neural foraminal stenosis. There is mild displacement of thee exiting nerve series 301 image 4 L5-S1: The disc has a rounded posterior morphology without significant spinal canal stenosis. Facet j oint arthropathy with moderate right and [id number]-bc-rxdgwoid left bilateral neural foraminal stenosis. No significant spinal canal or neural foraminal stenosis in the remainder of the visualized levels. Other findings: None. IMPRESSION: 1. No definitive evidence of disc herniation or significant spinal canal stenosis. 2. Mild to moderate disc degeneration with associated osteoarthritic changes. Facet joint osteophyte mildly displaces the exiting nerve L4-L5 on the left. No other evidence for disc protrusion or disc herniation.
== END | disposition home or self-care (01) ==
LOC: RADMRIMAIN 20:00
PROVIDERS: ATTEND Physical Medicine & Rehabilitation
DX: M43.07 Spondylolysis, lumbosacral region
CPT/HCPCS: 72148

== ENCOUNTER → 2024-04-05 | Outpatient (CLI) | payer OTHER ==
--- NOTE | 2024-04-05 18:24 | CT ---
EXAMINATION TYPE: CT chest wo con DATE OF EXAM: 04/05/2024 5:54 PM COMPARISON: 04/28/2023 CLINICAL INDICATION: Male, 63 years old with history of R91.1 LUNG NODULE; PHH, Lung Nodule. TECHNIQUE: Multiple axial images were obtained through the chest. Sagittal and coronal reformats were created for review. MIP was performed on a separate workstation. Contrast used: mL of (None if empty) Oral contrast used: (None if empty) CT DLP: 482.1 mGycm, Automated exposure control for dose reduction was used. FINDINGS: LUNGS/ PLEURA: Left upper lung somewhat spiculated nodule on axial imaging measuring 10 x 5 mm. Suspe cted atelectasis along the medial aspect of the right lower lung. No pneumothorax, focal consolidatio n or pleural effusion. Mild centrilobular and paraseptal emphysema changes. AIRWAY: Patent and unremarkable. HEART: Size within normal limits. MEDIASTINUM: No gross evidence of adenopathy. VASCULATURE: No aortic aneurysm. MUSCULOSKELETAL: No acute osseous abnormalities, remote appearing bilateral posterior rib injuries. SOFT TISSUES/LYMPH NODES: Unremarkable. LOWER NECK: No significant findings. UPPER ABDOMEN: Scattered colonic diverticula. IMPRESSION: 1. 10 x 5 mm left upper lung nodule, not in the the [id number] on prior CT. Consider short-term f ollow-up in 6-12 months to ensure stability. If priors are available to show stability would be recom mended up to load them for comparison. 2. Mild emphysema. 3. Remote bilateral rib injuries. Follow up recommendations for incidental pulmonary nodules, if there are any, are per [employer] or [employer]. https://radiopaedia.org/articles/wytiwrazmu-ouwcikr-bespuyipo-lmslig-fdgmultkfwgnbjo-[email or web address]?lang=us [facility], , 04/05/2024 6:22 PM
== END | disposition home or self-care (01) ==
LOC: RADCTMAIN 17:31
PROVIDERS: ATTEND Internal Medicine
DX: J43.9 Emphysema, unspecified (principal); R91.1 Solitary pulmonary nodule; S29.9XXA Unspecified injury of thorax, initial encounter
CPT/HCPCS: 71250